=== PATIENT | female | born 1990 | race Caucasian/White ===

== ENCOUNTER 2019-03-25 00:20 | Inpatient (IN) ==
[2019-03-25 02:12] LABS: Basophils % 0.5 % (0.0-0.8); Eosinophils # 0.1 10*3/uL (0.0-0.87); Eosinophils % 0.8 % (0.00-10.9); Hematocrit 39.6 VOL% (35.7-47.0); Hemoglobin 12.4 GM/DL (12.0-16.0); Immature Granulocytes % 0.2 %; Immature Granulocytes Absolute 0.01 #; Lymphocytes # 1.4 10*3/uL (1.4-4.0); Lymphocytes % 21.8 % (21.3-54.2); Mean Corpuscular HGB Conc 31.3 GM/DL (32-36); Mean Platelet Volume 9.9 FL (9.6-12.0); Monocytes % 7.3 % (1.7-12.7); Neutrophils % 69.4 % (38.7-73.9); Platelet Count 237 T/CUMM (130-400); Red Blood Count 4.55 MC/CUMM (3.8-5.5); Red Cell Distribution Width 14.6 % (9.3-17.3); White Blood Count 6.2 T/CUMM (4-12)
[2019-03-25 02:35] LABS: Bilirubin,Total 2.5 MG/DL (0.2-1.0); Calcium 9.7 MG/DL (8.5-10.1); Osmolality,Calculated 277.3 MOS/KG (273-304); Total Protein 8.1 G/DL (6.4-8.3)
[2019-03-25 04:48] LABS: INR 0.9; PT Patient Result 10.1 SECS; Partial Thromboplastin Time 25.9 SECS (0-40)
[2019-03-25] MEDS ORDERED: HYDROmorphone 2 MG/1 ML VIAL IV STA (04:48)
[2019-03-25] MEDS ORDERED: SODIUM CHLORIDE 0.9% 1,000 ML IV SCH (05:21)
[2019-03-25] MEDS ORDERED: ONDANSETRON 4 MG/2 ML VIAL IV STA (05:21)
[2019-03-25] MEDS: MORPHINE 4 MG/1 ML VIAL IV PRN (21:52)
[2019-03-25] MEDS: ONDANSETRON 4 MG/2 ML VIAL IV PRN (22:01)
[2019-03-26 05:51] LABS: Basophils % 0.7 % (0.0-0.8); Eosinophils # 0.1 10*3/uL (0.0-0.87); Eosinophils % 2.1 % (0.00-10.9); Hematocrit 36.2 VOL% (35.7-47.0); Hemoglobin 11.5 GM/DL (12.0-16.0); Immature Granulocytes % 0.2 %; Immature Granulocytes Absolute 0.01 #; Lymphocytes # 1.5 10*3/uL (1.4-4.0); Lymphocytes % 35.7 % (21.3-54.2); Mean Corpuscular HGB Conc 31.8 GM/DL (32-36); Mean Corpuscular Volume 87.2 FL (87-102); Mean Platelet Volume 10.3 FL (9.6-12.0); Monocytes % 10.2 % (1.7-12.7); Neutrophils % 51.1 % (38.7-73.9); Platelet Count 199 T/CUMM (130-400); Red Blood Count 4.15 MC/CUMM (3.8-5.5); Red Cell Distribution Width 14.7 % (9.3-17.3); White Blood Count 4.3 T/CUMM (4-12)
[2019-03-26 06:16] LABS: Albumin 3.4 G/DL (3.4-5.0); Bilirubin,Total 1.6 MG/DL (0.2-1.0); Calcium 9.1 MG/DL (8.5-10.1); Osmolality,Calculated 279.1 MOS/KG (273-304)
[2019-03-26] MEDS: MORPHINE 4 MG/1 ML VIAL IV PRN (18:54)
[2019-03-26] MEDS: ONDANSETRON 4 MG/2 ML VIAL IV PRN (23:05)
[2019-03-27 06:12] LABS: Albumin 3.6 G/DL (3.4-5.0); Bilirubin,Total 2.2 MG/DL (0.2-1.0); Calcium 9.5 MG/DL (8.5-10.1); Osmolality,Calculated 272.5 MOS/KG (273-304); Total Protein 7.6 G/DL (6.4-8.3)
[2019-03-27] MEDS ORDERED: ONDANSETRON 4 MG/2 ML VIAL ONE (09:00)
[2019-03-27] MEDS ORDERED: SUCCINYLCHOLINE 200 MG/10 ML VIAL ONE (09:00)
[2019-03-27] MEDS ORDERED: PHENYLEPHRINE 1 MG/10 ML SYRINGE IV ONE (09:00)
[2019-03-27] MEDS ORDERED: LIDOCAINE 2% 5 ML VIAL ONE (09:00)
[2019-03-27] MEDS ORDERED: PROPOFOL 200 MG/20 ML VIAL IV ONE (09:00)
[2019-03-27] MEDS ORDERED: DEXAMETHASONE 4 MG/1 ML VIAL ONE (09:00)
[2019-03-27] MEDS ORDERED: ROCURONIUM 100 MG/10 ML VIAL IV ONE (09:00)
[2019-03-27] MEDS ORDERED: fentaNYL 100 MCG/2 ML VIAL ONE (13:10)
[2019-03-27] MEDS ORDERED: MIDAZOLAM 2 MG/2 ML VIAL ONE (13:10)
[2019-03-27] MEDS ORDERED: INDOMETHACIN SUPP 50 MG SUPP RECTAL ONE (13:11)
[2019-03-27] MEDS: LACTATED RINGERS 1,000 ML IV SCH (13:18)
[2019-03-27] MEDS ORDERED: GLUCAGON 1 MG VIAL ONE (14:14)
[2019-03-27] MEDS ORDERED: SEVOFLURANE 1 UNIT/15 MINUTE INH ONE (14:40)
[2019-03-27] MEDS: ONDANSETRON 4 MG/2 ML VIAL IV PRN (15:50)
[2019-03-28] MEDS ORDERED: ceFAZolin 1,000 MG in SYRINGE 1 EACH IV ONE (06:21)
[2019-03-28] MEDS ORDERED: SCOPOLAMINE 1.5 MG PATCH TRANSDERM ONE ×2 (08:03→08:44)
[2019-03-28] MEDS ORDERED: FAMOTIDINE 20 MG TABLET PO ONE (08:03)
[2019-03-28] MEDS ORDERED: BUPIVACAINE MPF 0.25% /EPI 30 ML VIAL ONE (08:32)
[2019-03-28] MEDS ORDERED: LIDOCAINE 1% 20 ML VIAL ONE (08:32)
[2019-03-28] MEDS ORDERED: TISSUE ADHESIVE 1 EACH APPLICATOR TOP ONE (08:32)
[2019-03-28] MEDS ORDERED: ONDANSETRON 4 MG/2 ML VIAL ONE (08:42)
[2019-03-28] MEDS ORDERED: LACTATED RINGERS 1,000 ML IV SCH (09:00)
[2019-03-28] MEDS ORDERED: ceFAZolin 1,000 MG VIAL ONE (09:10)
[2019-03-28] MEDS ORDERED: SEVOFLURANE 1 UNIT/15 MINUTE INH ONE (11:09)
[2019-03-28] MEDS ORDERED: MIDAZOLAM 2 MG/2 ML VIAL ONE (11:09)
[2019-03-28] MEDS ORDERED: fentaNYL 100 MCG/2 ML VIAL ONE (11:09)
[2019-03-28] MEDS ORDERED: PROPOFOL 200 MG/20 ML VIAL IV ONE (11:09)
[2019-03-28] MEDS ORDERED: SUCCINYLCHOLINE 200 MG/10 ML VIAL ONE (11:10)
[2019-03-28] MEDS ORDERED: KETOROLAC 30 MG/1 ML VIAL ONE (11:10)
[2019-03-28] MEDS ORDERED: GLYCOPYRROLATE 0.4 MG/2 ML VIAL ONE (11:10)
[2019-03-28] MEDS ORDERED: NEOSTIGMINE 10 MG/10 ML VIAL ONE (11:10)
[2019-03-28] MEDS ORDERED: PHENYLEPHRINE 1 MG/10 ML SYRINGE IV ONE (11:10)
[2019-03-28] MEDS ORDERED: LACTATED RINGERS 1,000 ML IV ONE (11:10)
[2019-03-28] MEDS ORDERED: ROCURONIUM 100 MG/10 ML VIAL IV ONE (11:10)
[2019-03-28] MEDS: LACTATED RINGERS 1,000 ML IV SCH ×2 (11:16→14:54)
[2019-03-28] MEDS: ONDANSETRON 4 MG/2 ML VIAL IV PRN (12:35)
[2019-03-29 06:12] LABS: Albumin 2.9 G/DL (3.4-5.0); Bilirubin,Total 0.7 MG/DL (0.2-1.0); Calcium 8.7 MG/DL (8.5-10.1); Osmolality,Calculated 273.5 MOS/KG (273-304); Total Protein 6.5 G/DL (6.4-8.3)
[2019-03-29 11:24] LABS: Albumin 3.1 G/DL (3.4-5.0); Bilirubin,Direct 0.29 MG/DL (0.0-0.20); Bilirubin,Indirect 0.4 MG/DL (0.0-1.0); Bilirubin,Total 0.7 MG/DL (0.2-1.0); Total Protein 6.6 G/DL (6.4-8.3)
[2019-03-29 11:32] VITALS: BP 92/48
[2019-03-29 14:21] LABS: Albumin 3.1 G/DL (3.4-5.0); Bilirubin,Direct 0.28 MG/DL (0.0-0.20); Bilirubin,Indirect 0.3 MG/DL (0.0-1.0); Bilirubin,Total 0.6 MG/DL (0.2-1.0)
== END 2019-03-29 16:12 | disposition home or self-care (01) | DRG 419 ==
LOC: N.ED 00:20 → N.EDINP 04:27 → N.3E 05:09
PROVIDERS: ADMIT Internal Medicine; ATTEND Internal Medicine
PROC: ERCPWSP (ICD-10-PCS; 2019-03-27 12:20)
PROC: LAPCHOL (2019-03-28 08:55)